=== PATIENT | male | born 1975 | race Caucasian/White ===

== ENCOUNTER 2018-01-28 10:05 | Emergency (ER) | payer BC ==
[2018-01-28 10:16] VITALS: BP 153/82
--- NOTE | 2018-01-28 10:56 | UC ---
Matteo Kong Rebecca, scribed for [facility],Stu Saez MD on 01/28/18 at 1026 . General HPI - HPI Summary HPI Summary: In Room: Pt is a 43 y/o M who presents to [facility] c/o diarrhea for 4 days. Symptoms began late afternoon on Tuesday, hardening slightly temporarily then becoming "water" again last night. Yesterday he had about 6 episodes and has had one today thus far. Has been treating with antidiarrheal medication. Sx unchanged by walking and jumping. Additionally c/o bilateral muffled hearing, increased belching, and abdominal "hardness" yesterday. Denies fever, blood in stool, N/V, abdominal pain, tinnitus. Confirms he has been staying hydrated and reports the only food he has eaten differently from family members who are not ill was a gyro on Tuesday. Was sick with a cold about 2 weeks ago. 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 No recent travel and no prior similar episodes. MD: Vital signs stable. BP 153/82, patient was on antihypertensive medication which he is no longer taking. Visit history is noncontributory to the present complaint. Nurse's: pt states he has had diarrhea starting tuesday. pt states there are no other symptoms related to the diarrhea but his hearing is muffled bilat. - History of Current Complaint Chief Complaint: [facility] [place] Stated Complaint: GAS,EAR COMPLAINT Time Seen by Provider: 01/28/18 10:16 Hx Obtained From: Patient Onset/Duration: Lasting Days - 4 days, Still Present Current Severity: None Pain Intensity: 0 Aggravating: Nothing Alleviating: Nothing Associated Signs & Symptoms: Positive: Diarrhea, Other - Muffled hearing bilaterally - Allergy/Home Medications Allergies/Adverse Reactions: Allergies Allergy/AdvReac Type Severity Reaction Status Date / Time No Known Allergies Allergy Verified 01/28/18 10:16 PMH/Surg Hx/FS Hx/Imm Hx - Additional Past Medical History Additional PMH: NEGATIVE PMHx: DM, inflammatory bowel disease Cardiovascular History: Hypertension - Surgical History Surgical History: Yes Surgery Procedure, Year, and Place: TONSILECTOMY. RIGHT HAND SURGERY - Family History Known Family History: Positive: Diabetes - Social History Alcohol Use: Rare Substance Use Type: None Smoking Status (MU): Never Smoked Tobacco Have You Smoked in the Last Year: No Review of Systems Constitutional: Negative Skin: Negative Eyes: Negative ENT: Other - Bilateral muffled hearing Respiratory: Negative Cardiovascular: Negative Gastrointestinal: Diarrhea, Other - Increased belching, abdominal "hardness" ( resolved) Genitourinary: Negative Motor: Negative Neurovascular: Negative Musculoskeletal: Negative Neurological: Negative Psychological: Negative All Other Systems Reviewed And Are Negative: Yes - Comments Additional Review of Systems Comments: POSITIVE: Diarrhea, bilateral muffled hearing, belching, abdominal "hardness" ( resolved) NEGATIVE: Fever, blood in stool, N/V, abdominal pain, tinnitus Physical Exam - Summary Physical Exam Summary: Appearance: The patient is well-appearing, is in no pain distress, and is well- nourished. Eyes: Conjunctiva are clear. ENT: The hearing is grossly normal, the pharynx is normal, and the TMs are normal. There is no muffled or hoarse voice. Small amount of fluid behind each ear drum. Neck: The neck is supple and there is no lymphadenopathy. Respiratory: The chest is nontender. The lungs are clear, there are normal breath sounds, and there is no respiratory distress. Cardiovascular: Heart is regular rate and rhythm. There is no murmur. Abdomen: The abdomen is soft and nontender. There is no organomegaly. No abdominal tenderness with walking or jumping. No acute abdomen. Bowel sounds: Hyperactive Musculoskeletal: Strength is intact. The patient moves all extremities. Neurological: The patient is alert. Psychological: The patient displays age appropriate behavior Skin: Negative for rashes. Triage Information Reviewed: Yes Vital Signs: Initial Vital Signs Temp 97.2 F 01/28/18 10:09 Pulse 70 01/28/18 10:09 Resp 18 01/28/18 10:09 BP 153/82 01/28/18 10:09 Pulse Ox 98 01/28/18 10:09 Vital Signs Reviewed: Yes Course/Dx - Course Course Of Treatment: 43 y/o male in good health except for obesity and HTN, with complaint of diarrhea for 4 days. No abdominal pain. Examination shows hyperactive bowel sounds and no acute abdomen. This is either a food intolerance or a viral gastroenteritis. The pt has no history of inflammatory bowel disease. My recommendation to him was to stay hydrated, diet control, and appropriate cleansing after BM. Hypertensive BP reading (>=140/90); patient referred to PCP within 1 day - 4 weeks for follow up. Medications have been included in the original chart and reviewed. - Differential Dx - Multi-Symptom Provider Diagnoses: 1) Diarrhea: unclear etiology, virus or food intolerance. 2 ) Serous otitis, bilateral Discharge - Sign-Out/Discharge Documenting (check all that apply): Discharge - Discharge - Discharge Plan Condition: Stable Disposition: HOME Patient Education Materials: Bismuth Subsalicylate (By mouth), Acute Diarrhea ( ED) Referrals: Ino Bro MD [Primary Care Provider] - Additional Instructions: Your blood pressure reading today was 153/82 indicating HYPERTENSION. Follow-up with your primary care provider within 4 weeks for blood pressure readings and further evaluation. PLEASE SEEK CARE AT THE EMERGENCY DEPARTMENT IF SYMPTOMS WORSEN OR IF NEW SYMPTOMS DEVELOP. FOLLOW UP WITH YOUR PRIMARY CARE PHYSICIAN. WE DISCUSSED: 1. Your diarrhea is either a reaction to food or a virus. 2. See attached recommendations for diet and over the counter medications. 3. Stay hydrated. 4. Recheck if continued diarrhea in 10 days. 5. Recheck blood pressure. 6. Call with anyquestions or concerns. - Billing Disposition and Condition Condition: STABLE Disposition: HOME The documentation as recorded by the Matteo varma Rebecca accurately reflects the service I personally performed and the decisions made by , Stu Sevilla MD.
== END 2018-01-28 10:47 | disposition home or self-care (01) ==
LOC: UCEAST 10:05
DX: R19.7 Diarrhea, unspecified (principal); H65.93 Unspecified nonsuppurative otitis media, bilateral; I10 Essential (primary) hypertension
CPT/HCPCS: 99211; G0463

== ENCOUNTER 2018-11-19 09:21 | Emergency (ER) | payer BC ==
--- NOTE | 2018-11-19 10:03 | ED ---
Lower Extremity - HPI Summary HPI Summary: Patient is a 43-year-old male with a history of obesity presenting to the ED with a right hamstring injury which occurred yesterday. He states he slipped and fell and almost at the splits, injuring the left hamstring. He has been ambulatory since that time, however with pain. Denies any ecchymosis, numbness , tingling or temperature changes. He states this never happened to him in the past. He is concerned for a tear, (hx of biceps tear and familiar) but denies any deformities. - History of Current Complaint Chief Complaint: EDExtremityLower Stated Complaint: RIGHT LEG PAIN Time Seen by Provider: 11/19/18 09:37 Hx Obtained From: Patient Mechanism Of Injury: Twisted Onset of Pain: Days Onset/Duration: Days Severity Initially: Moderate Severity Currently: Moderate Pain Intensity: 8 Pain Scale Used: 0-10 Numeric Timing: Constant Location: Is Discrete @ - right hamstring injury Character Of Pain: Aching Associated Signs And Symptoms: Negative: Swelling, Redness, Bruising, Fever, Weakness Aggravating Factor(s): Standing, Ambulation Alleviating Factor(s): Rest Able to Bear Weight: No - Risk Factors Gout Risk Factors: Negative DVT Risk Factors: Negative Septic Arthritis Risk Factor: Negative - Allergies/Home Medications Allergies/Adverse Reactions: Allergies Allergy/AdvReac Type Severity Reaction Status Date / Time No Known Allergies Allergy Verified 01/28/18 10:16 PMH/Surg Hx/FS Hx/Imm Hx Previously Healthy: Yes Endocrine/Hematology History: Denies: Hx Diabetes, Hx Thyroid Disease Cardiovascular History: Reports: Hx Hypertension - no longer takes htn meds Respiratory History: Denies: Hx Asthma, Hx Chronic Obstructive Pulmonary Disease (COPD) GI History: Denies: Hx Ulcer - Surgical History Surgery Procedure, Year, and Place: TONSILECTOMY. RIGHT HAND SURGERY Infectious Disease History: No Infectious Disease History: Denies: Hx Clostridium Difficile, Hx Hepatitis, Hx Human Immunodeficiency Virus (HIV), Hx of Known/Suspected MRSA, Hx Shingles, Hx Tuberculosis, Hx Known/ Suspected VRE, Hx Known/Suspected VRSA, History Other Infectious Disease, Traveled Outside the [place] in Last 30 Days - Family History Known Family History: Positive: Diabetes - Social History Occupation: Employed Full-time Lives: With Family Alcohol Use: Rare Hx Substance Use: No Substance Use Type: Reports: None Hx Tobacco Use: No Smoking Status (MU): Never Smoked Tobacco Have You Smoked in the Last Year: No Review of Systems Negative: Fever, Chills, Fatigue, Skin Diaphoresis Negative: Palpitations, Chest Pain Negative: Shortness Of Breath, Cough Genitourinary: Negative Positive: no symptoms reported Positive: Myalgia - right mid-hamstring Skin: Negative Neurological: Negative All Other Systems Reviewed And Are Negative: Yes Physical Exam Triage Information Reviewed: Yes Vital Signs On Initial Exam: Initial Vitals Temp Pulse Resp BP Pulse Ox 97.6 F 75 16 161/83 96 11/19/18 09:39 11/19/18 09:39 11/19/18 09:39 11/19/18 09:39 11/19/18 09:39 Vital Signs Reviewed: Yes Appearance: Positive: Obese Skin: Positive: Skin Color Reflects Adequate Perfusion Head/Face: Positive: Normal Head/Face Inspection Eyes: Positive: EOMI, KRYSTA Neck: Positive: Nontender, No Lymphadenopathy Respiratory/Lung Sounds: Positive: Breath Sounds Present Cardiovascular: Positive: RRR, Pulses are Symmetrical in both Upper and Lower Extremities Musculoskeletal: Positive: Strength/ROM Intact, Pain @ - mid hamstring tenderness without palpable area, no ecchymosis, erythema, warmth Neurological: Positive: Speech Normal Psychiatric: Positive: Affect/Mood Appropriate Diagnostics - Vital Signs Vital Signs Temp Pulse Resp BP Pulse Ox 11/19/18 09:39 97.6 F 75 16 161/83 96 - Laboratory Lab Statement: Any lab studies that have been ordered have been reviewed, and results considered in the medical decision making process. Lower Extremity Course/Dx - Course Course Of Treatment: During the course treatment, the patient's evaluated for right hamstring injury. He states he injured the area yesterday. Denies any ecchymosis, numbness, tingling, color or temperature changes. There is no notable deformity. Denies any other symptoms. He remains ambulatory, but with pain. Patient is able to flex and extend at the knee. Denies any pain with flexion, mild amount of pain to the mid hamstring with full extension and dorsi flexion of the foot. Discussed with patient treatment options. There is no weakness noted. Patient remains flexible to the antagonists of the hamstrings and hip flexor muscles intact. No groin pain. This appears to be a grade 1 hamstring tear. Given flexeril as needed, but encouraged rest, elevation, heat and ibuprofen. Note given for work. - Diagnoses Differential Diagnosis/HQI/PQRI: Positive: Sprain, Strain Provider Diagnoses: Hamstring strain Discharge - Sign-Out/Discharge Documenting (check all that apply): Patient Departure - Discharge Plan Condition: Stable Disposition: HOME Prescriptions: Cyclobenzaprine TAB* [Flexeril TAB*] 10 mg PO BID PRN #10 tab PRN Reason: Pain Patient Education Materials: Hamstring Injury (ED) Forms: *Work Release Referrals: No Primary Care Phys,NOPCP [Primary Care Provider] - Additional Instructions: Heat to the area Ibuprofen 600mg three times daily x 4 days . Flexeril as needed Rest Gentle stretches - Billing Disposition and Condition Condition: STABLE Disposition: Home
[2018-11-19 10:29] VITALS: BP 164/84
== END 2018-11-19 10:27 | disposition home or self-care (01) ==
LOC: ED 09:21
DX: S76.911A Strain of unspecified muscles, fascia and tendons at thigh level, right thigh, initial encounter (principal); W01.0XXA Fall on same level from slipping, tripping and stumbling without subsequent striking against object, initial encounter; Y92.9 Unspecified place or not applicable
CPT/HCPCS: 99282

== ENCOUNTER 2024-07-13 08:01 | Observation (INO) ==
[2024-07-13] MEDS: Lactated Ringers 1000 ml BAG IV.FLUID IV ONE ×2 (11:16→16:29)
[2024-07-13 11:26] LABS: Hematocrit 37.3 % (38-53); Hemoglobin 12.5 g/dL (13.2-16.3); Mean Corpuscular Hemoglobin 29.7 pg (27-33); Mean Corpuscular Hgb Conc 33.6 g/dL (31-36); Mean Corpuscular Volume 88.3 fL (80-97); Mean Platelet Volume 7.7 fL (7.5-11.2); Platelet Count 221 10^3/uL (150-450); Red Blood Count 4.23 10^6/uL (4.06-5.63); Red Cell Distribution Width 15.1 % (12-17); White Blood Count 24.8 10^3/uL (3.6-10.2)
[2024-07-13 12:10] LABS: Albumin 3.6 g/dL (3.2-5.2); Albumin/Globulin Ratio 1.2 (1-3); C Reactive Protein 232.05 mg/L (<8.01); Calcium 8.7 mg/dL (8.6-10.3); Creatinine, Serum 0.91 mg/dL (0.67-1.17); Globulin 3.1 g/dL (2-4); Potassium 3.8 mmol/L (3.5-5.0); Total Bilirubin 1.8 mg/dL (0.2-1.0); Total Protein 6.7 g/dL (6.4-8.9); eGFR CKD-EPI 103.3 (>60)
[2024-07-13 12:42] LABS: High Sensitivity Troponin 1 Hr 22 pg/mL (<20)
[2024-07-13] MEDS: cefTRIAXone 2 GM ADDV.VIAL 2 GM in NS 0.9% 100 ml BAG 100 ML IV ONE (12:54)
[2024-07-13] MEDS: cefTRIAXone 2 gm/50 mL D5W 2 GM/50 ML BAG IV ONE (12:55)
[2024-07-13 13:08] LABS: ABS Lymphocytes 0.9 10^3/uL (1.0-4.8); ABS Monocytes 2.1 10^3/uL (0.0-1.1); ABS Neutrophils 21.7 10^3/uL (1.5-7.6); Lymphocyte % 3.7 %
[2024-07-13] MEDS: Iohexol 350 (CONTRAST) 500 ML MDV IV ONE (13:48)
[2024-07-13 15:09] LABS: Urine Appearance Clear; Urine Bacteria Absent /HPF (Absent); Urine Bilirubin Negative (Negative); Urine Blood 2+ (Negative); Urine Color Yellow; Urine Glucose Negative (Negative); Urine Ketones Negative (Negative); Urine Nitrite Negative (Negative); Urine Protein 1+ (>=30 mg/dL) (Negative); Urine Red Blood Cell 2+(6-10/hpf) /HPF (0-Trace); Urine Specific Gravity >1.050 (1.002-1.030); Urine Sperm Present /HPF (Absent); Urine Squamous Epithelial Cell Present /HPF (Absent); Urine Urobilinogen 1+ (Negative); Urine White Blood Cell 2+(11-20/hpf) /HPF (0-Trace)
[2024-07-13 15:49] LABS: Urine Benzodiazepine Screen None Detected (None Detect); Urine Cannabinoids Screen None Detected (None Detect); Urine Opiates Screen None Detected (None Detect)
[2024-07-13] MEDS: Enoxaparin 40 MG/0.4 ML SYR SUBCUT SCH (19:06)
[2024-07-13] MEDS: Al Hydrox/Mg Hydrox/Simet LIQ 30 ML UDC PO PRN (22:29)
[2024-07-14 07:50] LABS: Hemoglobin 13.1 g/dL (13.2-16.3); Mean Corpuscular Hemoglobin 30.5 pg (27-33); Mean Corpuscular Hgb Conc 34.4 g/dL (31-36); Mean Corpuscular Volume 88.6 fL (80-97); Mean Platelet Volume 7.9 fL (7.5-11.2); Platelet Count 206 10^3/uL (150-450); Red Blood Count 4.29 10^6/uL (4.06-5.63); Red Cell Distribution Width 15.2 % (12-17); White Blood Count 21.1 10^3/uL (3.6-10.2)
[2024-07-14 08:08] LABS: Albumin 3.4 g/dL (3.2-5.2); Albumin/Globulin Ratio 1.1 (1-3); Calcium 8.5 mg/dL (8.6-10.3); Creatinine, Serum 0.91 mg/dL (0.67-1.17); Magnesium 2.1 mg/dL (1.9-2.7); Potassium 3.9 mmol/L (3.5-5.0); Total Bilirubin 0.9 mg/dL (0.2-1.0); Total Protein 6.4 g/dL (6.4-8.9); eGFR CKD-EPI 103.3 (>60)
[2024-07-14 09:03] LABS: ABS Lymphocytes 1.2 10^3/uL (1.0-4.8); ABS Monocytes 1.6 10^3/uL (0.0-1.1); ABS Neutrophils 18.1 10^3/uL (1.5-7.6); ABS Nucleated RBC 0.01 10^3/ul; Eosinophil % 0.2 %; Lymphocyte % 5.9 %
[2024-07-14] MEDS: Enoxaparin 40 MG/0.4 ML SYR SUBCUT SCH (13:26)
[2024-07-14] MEDS: cefTRIAXone 1 gm/50 mL D5W 1 GM/50 ML BAG IV SCH (13:56)
[2024-07-14] MEDS: Enoxaparin 60 MG/0.6 ML SYR SUBCUT SCH (20:33)
[2024-07-15 06:59] LABS: ABS Eosinophils 0.1 10^3/uL (0.0-0.5); ABS Lymphocytes 0.8 10^3/uL (1.0-4.8); ABS Monocytes 0.8 10^3/uL (0.0-1.1); ABS Neutrophils 6.4 10^3/uL (1.5-7.6); Hematocrit 37.1 % (38-53); Hemoglobin 12.8 g/dL (13.2-16.3); Lymphocyte % 9.4 %; Mean Corpuscular Hemoglobin 30.6 pg (27-33); Mean Corpuscular Hgb Conc 34.6 g/dL (31-36); Mean Corpuscular Volume 88.3 fL (80-97); Platelet Count 189 10^3/uL (150-450); Red Cell Distribution Width 15.3 % (12-17)
[2024-07-15 07:35] LABS: Albumin 3.2 g/dL (3.2-5.2); Albumin/Globulin Ratio 1.1 (1-3); Creatinine, Serum 0.9 mg/dL (0.67-1.17); Magnesium 2.2 mg/dL (1.9-2.7); Total Bilirubin 0.5 mg/dL (0.2-1.0); Total Protein 6.2 g/dL (6.4-8.9); eGFR CKD-EPI 104.7 (>60)
[2024-07-15 13:56] VITALS: BP 162/75
== END 2024-07-15 15:00 | disposition home or self-care (01) ==
LOC: ED 08:01 → EDHOLD 08:01 → MED 15:49
PROVIDERS: ADMIT Student in an Organized Health Care Education/Training Program; ATTEND Student in an Organized Health Care Education/Training Program